=== PATIENT | female | born 1955 | race African-American/Black ===

== ENCOUNTER 2024-03-20 12:29 | Inpatient (IN) | payer OTHER ==
[2024-03-20] VITALS (30 sets, daily range): BP systolic 110–209; BP diastolic 67–194; PULSE 126–185; RESP 22–37; TEMP 97.6–98.6
[~2024-03-20] VITALS: Ht 172.7 cm; Wt 61.7 kg
[2024-03-20 13:17] LABS: BASOPHILS % 0.2 % (0.0-2.0); DIFFERENTIAL COMMENT 0; EOSINOPHILS % 0.2 % (0.0-5.0); HEMATOCRIT. 29.9 % (36.0-48.0); HEMOGLOBIN. 9.8 g/dL (12.0-16.0); LYMPHOCYTES % 8.8 % (20.0-50.0); MEAN CORPUSCULAR HEMOGLOBIN 27.9 pg (28.0-32.0); MEAN CORPUSCULAR HGB CONC 32.8 g/dL (31.0-37.0); MEAN CORPUSCULAR VOLUME 84.9 fL (81.0-99.0); MEAN PLATELET VOLUME 10.4 fl (7.4-10.4); MONOCYTES % 1.9 % (2.0-8.0); NEUTROPHILS % 88.9 % (40.0-76.0); PLATELET 247 x1000/uL (130-400); RED BLOOD CELL COUNT 3.52 mill/uL (4.2-5.4); RED CELL DISTRIBUTION WIDTH 16.7 % (11.6-14.6); WHITE BLOOD COUNT 16.9 x1000/uL (4.5-11.0)
[2024-03-20] MEDS ORDERED: LACTATED RINGERS 1,000 ML IV SCH (13:30)
[2024-03-20 13:36] LABS: CARBON DIOXIDE 16 mEq/L (21-32); CHLORIDE 95 mEq/L (98-107); SODIUM 132 mEq/L (136-145)
[2024-03-20 13:37] LABS: CALCIUM 6.9 mg/dL (8.7-10.4)
[2024-03-20] MEDS: LACTATED RINGERS 1,000 ML IV SCH ×2 (13:38→18:21)
[2024-03-20] MEDS: VANCOMYCIN 1G PREMIX 200 ML IV SCH (13:38)
[2024-03-20 13:42] LABS: CREATININE 3.4 mg/dL (0.6-1.0); GLUCOSE 154 mg/dL (70-105); UREA NITROGEN BLOOD 43 mg/dL (9-23)
[2024-03-20] MEDS: PIPERACILLIN/TAZO 3.375G/50ML 50 ML IV SCH (14:00)
[2024-03-20 14:03] LABS: LACTIC ACID 7.4 mmol/L (0.4-2.0)
[2024-03-20 14:29] LABS: POTASSIUM 2.6 mEq/L (3.5-5.1); TROPONIN I HIGH SENSITIVITY 184 ng/L (3.0-34)
[2024-03-20 14:30] LABS: D-DIMER 6.94 mg/L FEU (<0.50); INR 1.2; PARTIAL THROMBOPLASTIN TIME 27.7 sec (23.4-31.0); PROTHROMBIN TIME 13.6 sec (9.6-11.0)
[2024-03-20] MEDS ORDERED: MAGNESIUM 2 G PREMIX 50 ML IV ONE (14:45)
[2024-03-20] MEDS ORDERED: KCL 10MEQ/50ML PREMIX 50 ML IV SCH (14:45)
[2024-03-20] MEDS: SODIUM CHLORIDE 0.9% 500 ML IV ONE (14:51)
[2024-03-20] MEDS: SODIUM CHLORIDE 0.9% 1,000 ML IV ONE (14:51)
[2024-03-20] MEDS ORDERED: AMIODARONE HCL 50MG/ML 9ML VIAL IV ONE (15:00)
[2024-03-20] MEDS ORDERED: PHENYLEPHRINE 50 MG in DEXT 5% WATER 245 ML IV PRN (15:00)
[2024-03-20] MEDS: POTASSIUM CHLORIDE 20MEQ TABLET SR PO ONE (15:06)
[2024-03-20] MEDS: AMIODARONE HCL 900 MG in DEXT 5% WATER 500 ML IV PRN (15:22)
[2024-03-20] MEDS ORDERED: PHENYLEPHRINE 50MG/250ML PMX 250 ML IV PRN (15:30)
[2024-03-20 16:45] LABS: ALANINE AMINOTRANSFERASE 31 IU/L (10-49); ALBUMIN 2.6 g/dL (3.2-4.8); ASPARTATE AMINOTRANSFERASE 48 IU/L (<34); BILIRUBIN TOTAL 2.7 mg/dL (0.1-1.0); PROTEIN TOTAL 6.9 g/dL (6.0-8.3)
[2024-03-20] MEDS ORDERED: AMIODARONE 150MG/100ML 100 ML IV NR (16:45)
[2024-03-20] MEDS ORDERED: AMIODARONE HCL 900 MG in DEXT 5% WATER 482 ML IV PRN (16:45)
[2024-03-20] MEDS ORDERED: IPRATROPIUM/ALBUTEROL 0.5-3(2.5)MG/3ML NEB HHN PRN (17:00)
[2024-03-20] MEDS ORDERED: ONDANSETRON HCL 4MG/2ML INJ IV PRN (17:00)
[2024-03-20] MEDS ORDERED: MAGNESIUM/ALUMINUM HYDROXIDE/SIMETHICONE 30ML UDC PO PRN (17:00)
[2024-03-20] MEDS ORDERED: GUAIFENESIN 200MG/10ML SUGAR FREE UDC PO PRN (17:00)
[2024-03-20] MEDS ORDERED: CLONIDINE 0.1MG TABLET PO PRN (17:00)
[2024-03-20] MEDS ORDERED: DOCUSATE SODIUM 100MG CAPSULE PO PRN (17:00)
[2024-03-20] MEDS ORDERED: ACETAMINOPHEN 325MG TABLET PO PRN ×2 (17:00)
[2024-03-20] MEDS ORDERED: ACYC200C31 (17:28)
[2024-03-20] MEDS ORDERED: POTA-203 (17:28)
[2024-03-20] MEDS ORDERED: ROSU20TA2 (17:28)
[2024-03-20] MEDS ORDERED: DEXA4TAB PO (17:28)
[2024-03-20] MEDS ORDERED: CICL6.1H IH (17:28)
[2024-03-20] MEDS ORDERED: ASPI-1406 PO (17:28)
[2024-03-20] MEDS ORDERED: LISI20TA31 (17:28)
[2024-03-20] MEDS: AMIODARONE 150MG/100ML 100 ML IV ONE (17:31)
[2024-03-20] MEDS ORDERED: SODIUM CHLORIDE 0.9% 1,000 ML IV SCH (18:02)
[2024-03-20 18:08] LABS: BG BASE EXCESS -7.3 mmol/L (-2.0-2.0); BG CARBOXYHEMOGLOBIN 0.3 % (0.5-1.5); BG DEOXYHEMOGLOBIN 8.4 % (0.0-5.0); BG FRACTION INSPIRED OXYGEN 32; BG HCO3 ACT 16.4 mmol/L (22.0-26.0); BG METHEMOGLOBIN 0.7 % (0.0-1.5); BG OXYGEN SATURATION 91.5 % (92.0-98.5); BG OXYHEMOGLOBIN 90.6 % (94.0-97.0); BG PCO2 27.1 mmHg (35.0-45.0); BG PO2 66.7 mmHg (75.0-100.0); BG SAMPLE SITE RIGHT RADIAL; BG TOTAL HEMOGLOBIN 9.3 g/dL (12.0-18.0); BG VENT MODE NASAL CANNULA
[2024-03-20] MEDS: MAGNESIUM 4 G PREMIX 100 ML IV NR (18:16)
[2024-03-20] MEDS: KCL 20MEQ/100ML PREMIX 100 ML IV SCH (18:17)
[2024-03-20] MEDS: METOCLOPRAMIDE HCL 10MG/2ML VIAL IV SCH (18:18)
[2024-03-20] MEDS: ENOXAPARIN 80MG/0.8ML SYR SUBCUT SCH (18:18)
[2024-03-20] MEDS ORDERED: CEFTRIAXONE 1,000 MG in DEXTROSE 5% WATER 50 ML IM SCH (21:00)
[2024-03-20] MEDS: GUAIFENESIN 600MG ER TABLET PO SCH (21:00)
[2024-03-20] MEDS: DOXYCYCLINE 100MG/100ML 100 ML IV SCH (21:10)
[2024-03-20 21:44] LABS: LDL CHOLESTEROL 12 mg/dL (5-100); TRIGLYCERIDE 355 mg/dL (0-150)
[2024-03-20 21:45] LABS: ALANINE AMINOTRANSFERASE 28 IU/L (10-49); ALBUMIN 2.8 g/dL (3.2-4.8); ASPARTATE AMINOTRANSFERASE 43 IU/L (<34); CHOLESTEROL 110 mg/dL (<200); CREATINE KINASE 351 IU/L (34-145); HDL CHOLESTEROL < 20 mg/dL (>65)
[2024-03-20 21:46] LABS: BILIRUBIN TOTAL 2.5 mg/dL (0.1-1.0); PROTEIN TOTAL 6.8 g/dL (6.0-8.3)
[2024-03-20 21:48] LABS: THYROID STIMULATING HORMONE 1.32 uIU/mL (0.55-4.78)
[2024-03-20 21:50] LABS: TROPONIN I HIGH SENSITIVITY 106 ng/L (3.0-34)
[2024-03-20] MEDS: METHYLPREDNISOLONE SOD SUCC 40MG/ML (ACT-O-VIAL) IV SCH (22:32)
[2024-03-20] MEDS: CEFTRIAXONE 1GM/50ML 50 ML IV SCH (22:32)
[2024-03-21] VITALS (94 sets, daily range): BP systolic 92–148; BP diastolic 33–117; PULSE 91–142; RESP 12–41; TEMP 94.2–98; O2SAT 99–100
[2024-03-21 00:25] LABS: *AMPHETAMINES SCREEN URINE NEGATIVE (NEGATIVE); *BARBITURATES SCREEN URINE NEGATIVE (NEGATIVE); *BENZODIAZEPINES SCREEN URINE NEGATIVE (NEGATIVE); CANNABINOID URINE SCREEN NEGATIVE (NEGATIVE); ECSTASY MDMA SCREEN URINE NEGATIVE (NEGATIVE); METHADONE URINE SCREEN NEGATIVE (NEGATIVE); OPIATES URINE SCREEN NEGATIVE (NEGATIVE); PHENCYCLIDINE URINE SCREEN NEGATIVE (NEGATIVE)
[2024-03-21 00:55] LABS: *COCAINE SCREEN URINE NEGATIVE (NEGATIVE)
[2024-03-21 01:53] LABS: TROPONIN I HIGH SENSITIVITY 80 ng/L (3.0-34)
[2024-03-21 04:29] LABS: BASOPHILS % 0.1 % (0.0-2.0); EOSINOPHILS % 0.1 % (0.0-5.0); HEMATOCRIT. 26.9 % (36.0-48.0); HEMOGLOBIN. 8.9 g/dL (12.0-16.0); MEAN CORPUSCULAR HEMOGLOBIN 27.9 pg (28.0-32.0); MEAN CORPUSCULAR HGB CONC 33.2 g/dL (31.0-37.0); MEAN CORPUSCULAR VOLUME 84.1 fL (81.0-99.0); MEAN PLATELET VOLUME 10.6 fl (7.4-10.4); NEUTROPHILS % 82.8 % (40.0-76.0); PLATELET 211 x1000/uL (130-400); RED CELL DISTRIBUTION WIDTH 17.5 % (11.6-14.6); WHITE BLOOD COUNT 13.7 x1000/uL (4.5-11.0)
[2024-03-21 04:32] LABS: CHLORIDE 99 mEq/L (98-107); POTASSIUM 3.3 mEq/L (3.5-5.1); SODIUM 131 mEq/L (136-145)
[2024-03-21 04:33] LABS: CALCIUM 6.7 mg/dL (8.7-10.4); CARBON DIOXIDE 17 mEq/L (21-32)
[2024-03-21 04:38] LABS: CREATININE 3.3 mg/dL (0.6-1.0); GLUCOSE 203 mg/dL (70-105); UREA NITROGEN BLOOD 48 mg/dL (9-23)
[2024-03-21 04:40] LABS: ALBUMIN 2.9 g/dL (3.2-4.8); PHOSPHORUS 2.4 mg/dL (2.5-4.9)
[2024-03-21 05:50] LABS: CLARITY URINE CLOUDY (CLEAR); COLOR URINE DARK YELLOW (YELLOW); GLUCOSE URINE NEGATIVE (NEGATIVE); KETONES URINE TRACE (NEGATIVE); LEUKOCYTE ESTERASE URINE NEGATIVE (NEGATIVE); NITRITE URINE NEGATIVE (NEGATIVE); OCCULT BLOOD URINE 2+ (NEGATIVE); PROTEIN URINE 2+ (NEGATIVE); SPECIFIC GRAVITY URINE 1.015 (1.005-1.030)
[2024-03-21 06:01] LABS: BACTERIA URINE 2+; COARSE GRANULAR CASTS URINE 0-5 /lpf; SQUAMOUS EPITHELIAL CELL URINE 1+ /lpf (RARE/1+); WBC URINE 0-2 /hpf (0-2)
[2024-03-21] MEDS: PANTOPRAZOLE SODIUM 40 MG/VIAL IV SCH (09:02)
[2024-03-21] MEDS ORDERED: METOPROLOL TARTRATE 5MG/5ML VIAL IV PRN (09:30)
[2024-03-21] MEDS: ENOXAPARIN 60MG/0.6ML SYR SUBCUT SCH (11:41)
[2024-03-21] MEDS: METOPROLOL TARTRATE 25MG TABLET PO SCH (11:41)
[2024-03-21] MEDS: AMIODARONE HCL 200 MG TABLET PO SCH (13:12)
[2024-03-21] MEDS: IPRATROPIUM/ALBUTEROL 0.5-3(2.5)MG/3ML NEB HHN SCH (14:10)
[2024-03-21] MEDS ORDERED: PIPERACILLIN/TAZO 3.375G/50ML 50 ML IV SCH (17:00)
[2024-03-21] MEDS: VANCOMYCIN 500MG/100ML IV NR (17:03)
[2024-03-21] MEDS: PIPERACILLIN/TAZO 3.375G/50ML 50 ML IV SCH (17:03)
[2024-03-21] MEDS: POTASSIUM PHOSPHATE 15 MMOL in DEXT 5% WATER 245 ML IV NR (18:43)
[2024-03-22] VITALS (66 sets, daily range): BP systolic 89–146; BP diastolic 69–127; PULSE 98–120; RESP 16–28; TEMP 97.3–97.5; O2SAT 98–100
[2024-03-22 05:22] LABS: POTASSIUM 3.2 mEq/L (3.5-5.1)
[2024-03-22 05:23] LABS: CALCIUM 6.6 mg/dL (8.7-10.4); HEMATOCRIT. 31.1 % (36.0-48.0); HEMOGLOBIN. 10.1 g/dL (12.0-16.0); MEAN CORPUSCULAR HEMOGLOBIN 27.1 pg (28.0-32.0); MEAN CORPUSCULAR HGB CONC 32.5 g/dL (31.0-37.0); MEAN CORPUSCULAR VOLUME 83.4 fL (81.0-99.0); MEAN PLATELET VOLUME 10.8 fl (7.4-10.4); PLATELET 294 x1000/uL (130-400); RED BLOOD CELL COUNT 3.72 mill/uL (4.2-5.4); RED CELL DISTRIBUTION WIDTH 17.7 % (11.6-14.6); WHITE BLOOD COUNT 11.2 x1000/uL (4.5-11.0)
[2024-03-22 05:24] LABS: DIFFERENTIAL COMMENT 1
[2024-03-22 05:28] LABS: CREATININE 3.2 mg/dL (0.6-1.0)
[2024-03-22 06:02] LABS: OVALOCYTES 3+; PLATELET ESTIMATE NORMAL; TARGET CELLS 1+; TEAR DROP CELLS 2+
[2024-03-22 06:03] LABS: GIANT PLATELETS FEW
[2024-03-22] MEDS: SODIUM CHLORIDE 0.9% 1,000 ML IV SCH (08:39)
[2024-03-22] MEDS: POTASSIUM CHLORIDE 20MEQ TABLET SR PO SCH (08:40)
[2024-03-22] MEDS ORDERED: ACETYLCYSTEINE 200MG/ML 20% VIAL 4ML INH SCH (13:00)
[2024-03-22] MEDS: VANCOMYCIN 1.25GM PMX (XELLIA) 250 ML IV NR (17:13)
[2024-03-29] MEDS ORDERED: AMIODARONE HCL 200 MG TABLET PO SCH (09:00)
== END 2024-03-22 20:50 | disposition short-term general hospital (02) | DRG 871 ==
LOC: ER 12:29 → MICUNO 14:30 → EDBEDREQTM 15:30 → EDBEDREQSVC 15:30 → EDBEDREQ 15:30
PROVIDERS: ADMIT Internal Medicine; ATTEND Internal Medicine
DX: A41.9 Sepsis, unspecified organism (principal); E88.3 Tumor lysis syndrome; J18.9 Pneumonia, unspecified organism; J96.01 Acute respiratory failure with hypoxia; I21.A1 Myocardial infarction type 2; N17.0 Acute kidney failure with tubular necrosis; C90.00 Multiple myeloma not having achieved remission; E87.1 Hypo-osmolality and hyponatremia; D84.9 Immunodeficiency, unspecified; I48.91 Unspecified atrial fibrillation; E83.42 Hypomagnesemia; E87.6 Hypokalemia; Z20.828 Contact with and (suspected) exposure to other viral communicable diseases; I50.9 Heart failure, unspecified; R65.20 Severe sepsis without septic shock; D86.9 Sarcoidosis, unspecified; E80.6 Other disorders of bilirubin metabolism; D64.9 Anemia, unspecified; E78.5 Hyperlipidemia, unspecified; H91.92 Unspecified hearing loss, left ear; I11.0 Hypertensive heart disease with heart failure; J45.909 Unspecified asthma, uncomplicated; Z79.82 Long term (current) use of aspirin; Z79.899 Other long term (current) drug therapy
CPT/HCPCS: 36415; 36600; 71045; 71250; 76770; 80048; 80061; 80076; 80202; 80305; 81003; 82040; 82375; 82550; 82805; 83036; 83605; 83735; 83880; 83970; 84100; 84145; 84439; 84443; 84484; 85025; 85379; 87070; 87077; 87186; 87426; 93005; 93306; 93970; 94640; 99291; C9113; J0282; J0696; J1650; J2370; J2543; J2765; J2920; J3370; J3475; J3480; J3490; J7030; J7040; J7060; J7120; J7608

== ENCOUNTER 2024-11-25 11:25 | Emergency (ER) | payer OTHER, MEDICARE ==
[~2024-11-25] VITALS: Ht 167.6 cm; Wt 81.0 kg
[~2024-11-25 11:25] MED LIST: ACYC200C31; ASPI-1406 PO; CICL6.1H IH; DEXA4TAB PO; LISI20TA31; POTA-203; ROSU20TA2
[2024-11-25 11:27] VITALS: O2SAT 99
[2024-11-25 12:12] LABS: BASOPHILS % 0.2 % (0.0-2.0); HEMATOCRIT. 35.7 % (36.0-48.0); LYMPHOCYTES % 10.6 % (20.0-50.0); MEAN CORPUSCULAR HEMOGLOBIN 31.8 pg (28.0-32.0); MEAN CORPUSCULAR HGB CONC 33.6 g/dL (31.0-37.0); MEAN CORPUSCULAR VOLUME 94.6 fL (81.0-99.0); MEAN PLATELET VOLUME 8.4 fl (7.4-10.4); MONOCYTES % 3.8 % (2.0-8.0); NEUTROPHILS % 85.4 % (40.0-76.0); PLATELET 180 x1000/uL (130-400); RED BLOOD CELL COUNT 3.77 mill/uL (4.2-5.4); RED CELL DISTRIBUTION WIDTH 17.1 % (11.6-14.6); WHITE BLOOD COUNT 11.4 x1000/uL (4.5-11.0)
[2024-11-25 12:20] LABS: CHLORIDE 109 mEq/L (98-107); POTASSIUM 4.2 mEq/L (3.5-5.1); SODIUM 144 mEq/L (136-145)
[2024-11-25 12:21] LABS: CARBON DIOXIDE 23 mEq/L (21-32)
[2024-11-25 12:22] LABS: CALCIUM 9.7 mg/dL (8.7-10.4)
[2024-11-25 12:26] LABS: CREATININE 0.9 mg/dL (0.6-1.0); GLUCOSE 215 mg/dL (70-105); UREA NITROGEN BLOOD 27 mg/dL (9-23)
[2024-11-25 12:31] LABS: INR 1.1; PROTHROMBIN TIME 11.9 sec (9.6-11.0)
[2024-11-25 13:12] LABS: TROPONIN I HIGH SENSITIVITY < 4 ng/L (3.0-34)
[2024-11-25] MEDS: SODIUM CHLORIDE 0.9% 1,000 ML IV ONE (13:40)
[2024-11-25] MEDS: ASPIRIN 81MG TABLET PO ONE (16:31)
[2024-11-25 18:00] VITALS: TEMP 36.8
[2024-11-25 19:13] VITALS: BP 155/58; PULSE 56; RESP 16; O2SAT 100
== END 2024-11-25 20:01 | disposition short-term general hospital (02) ==
LOC: ER 11:42
DX: R41.82 Altered mental status, unspecified (principal); G93.40 Encephalopathy, unspecified; J45.909 Unspecified asthma, uncomplicated; E78.5 Hyperlipidemia, unspecified; I10 Essential (primary) hypertension; C90.00 Multiple myeloma not having achieved remission; Z79.51 Long term (current) use of inhaled steroids; Z79.82 Long term (current) use of aspirin; Z86.73 Personal history of transient ischemic attack (TIA), and cerebral infarction without residual deficits
CPT/HCPCS: 80048; 85025; 85610; 84484; 36415; 71045; 70450; 93005; 96360; 99285; Z7610 ×3; J7030; A4606